=== PATIENT | male | born 1995 | race Caucasian/White ===

== ENCOUNTER 2022-11-30 07:44 | Emergency (ER) | payer MEDICAID ==
[~2022-11-30] VITALS: Ht 177.8 cm; Wt 86.2 kg
[2022-11-30 07:49] VITALS: BP_SYST 105
--- NOTE | 2022-11-30 08:00 | NUR ---
Patient to ER bed 8 to gown for evaluation. Side rails up. Report given to Yaima HERZOG.
--- NOTE | 2022-11-30 08:15 | NUR ---
Pt brought in by self from home. Pt is client of [facility] substance abuse recovery program. Declines use of narcotics. Pt complains of foreign metal object pierced through tongue. Pt states 2/10 pain No difficulty swallowing stated, no swelling to facial area, no signs of SOB. Tongue without bleeding. Pt states was chewing food when the tongue piercing jammed upward into the tongue causing discomfort.
--- NOTE | 2022-11-30 09:00 | NUR ---
ER at bedside examining patient.
--- NOTE | 2022-11-30 09:30 | NUR ---
Pt tolerating procedure well, suction mild setting removed saliva for aspiration precautions.
[2022-11-30] MEDS ORDERED: CHLO473M5 PO (10:04)
--- NOTE | 2022-11-30 10:15 | NUR ---
Pt educated on oral hygiene and signs of infection. Pt responded with understanding.
--- NOTE | 2022-11-30 10:17 | NUR ---
Patient given written and verbal discharge instructions and verbalizes understanding. ER MD discussed with patient the results and treatment provided. Patient in stable condition. ID arm band removed. Rx of Chlorhexidine given. Patient educated on pain management and to follow up with PMD. Opportunity for questions provided and answered. Medication side effect fact sheet provided.
[2022-11-30 10:23] VITALS: BP_SYST 105
== END 2022-11-30 10:17 | disposition home or self-care (01) ==
LOC: SED 07:44
DX: T18.0XXA Foreign body in mouth, initial encounter (principal); Z79.899 Other long term (current) drug therapy; W45.8XXA Other foreign body or object entering through skin, initial encounter; Y93.89 Activity, other specified; Y92.89 Other specified places as the place of occurrence of the external cause; Y99.8 Other external cause status
CPT/HCPCS: 99282; 99284